=== PATIENT | female | born 1990 | race Two or more races ===

== ENCOUNTER 2025-05-03 05:42 | Emergency (ER) | payer MEDICAID ==
[~2025-05-03] VITALS: Ht 152.4 cm; Wt 68.0 kg
[2025-05-03 06:41] LABS: PLATELET COUNT (AUTO) 271 K/uL (150-450); RED BLOOD CELL COUNT(AUTO) 4.57 MIL/uL (4.0-5.2); RED CELL DISTRIBUTION WIDTH 13.2 % (11.5-15.0); WHITE BLOOD COUNT (AUTO) 6.1 K/uL (4.3-11.0)
[2025-05-03 06:51] LABS: CALCIUM, SERUM 8.6 mg/dL (8.5-10.1); CREATININE 0.8 mg/dL (0.6-1.3); SODIUM SERUM 139 mmol/L (136-145); UREA NITROGEN, BLOOD 13 mg/dL (7-18)
[2025-05-03 07:04] LABS: ALCOHOL, BLOOD < 3 mg/dL (0-10); ASPARTATE AMINOTRANSFERASE 18 U/L (15-37); NT-PRO BNP 52 pg/mL (0-125); TOTAL PROTEIN, SERUM 7.3 g/dL (6.4-8.2)
[2025-05-03] MEDS ORDERED: CEPH-570 PO (07:29)
[2025-05-03] MEDS ORDERED: FURO-145 PO (07:29)
[2025-05-03 07:40] VITALS: BP 114/72; TEMP 98.1; O2SAT 100
== END 2025-05-03 07:41 | disposition home or self-care (01) ==
LOC: ER 06:03
DX: I87.2 Venous insufficiency (chronic) (peripheral) (principal); R60.0 Localized edema; Z59.00 Homelessness unspecified; R06.02 Shortness of breath
CPT/HCPCS: 36415; 71045-TC; 80048-TC; 80076-TC; 83880; 84443-TC; 84484-TC; 85025-TC; G0480